=== PATIENT | female | born 1965 | race Two or more races ===

== ENCOUNTER 2023-05-31 15:32 | Emergency (ER) | payer OTHER ==
[~2023-05-31] VITALS: Ht 162.6 cm; Wt 86.2 kg
[~2023-05-31 15:32] MED LIST: AMBIEN10 MG PO; CLONAZEPAM0.5 MG PO; ELMIRON100 MG PO; NEURONTIN300 MG PO; PRILOSEC10 MG PO; SYNTHROID50 MCG PO; ULTRACET; VISTARIL50 MG PO; XANAX XR0.5 MG PO; ZOLOFT100 MG PO
[2023-05-31] MEDS ORDERED: LEVOFLOXACIN750 MG PO (21:46)
[2023-05-31] MEDS ORDERED: BUDESONIDE0.5 MG/2 M IH (21:49)
== END 2023-05-31 21:59 | disposition home or self-care (01) ==
LOC: ER 15:32
DX: J20.9 Acute bronchitis, unspecified (principal); R42 Dizziness and giddiness; D35.2 Benign neoplasm of pituitary gland; Z20.822 Contact with and (suspected) exposure to COVID-19